=== PATIENT | male | born 2000 | race Caucasian/White ===

== ENCOUNTER 2021-09-03 18:49 | Emergency (ER) | payer OTHER ==
[~2021-09-03] VITALS: Ht 175.3 cm; Wt 104.3 kg
[2021-09-03] MEDS ORDERED: LEXAPRO 10 MG T10 M2 PO (19:39)
[2021-09-03] MEDS ORDERED: CLEOCIN HCL300 MG PO (20:37)
[2021-09-03] MEDS ORDERED: LEVAQUIN 500 M500 MG PO (20:37)
== END 2021-09-03 20:49 | disposition home or self-care (01) ==
LOC: M.ERS 18:49
DX: S71.112A Laceration without foreign body, left thigh, initial encounter (principal); Z79.899 Other long term (current) drug therapy; Z88.1 Allergy status to other antibiotic agents; W54.0XXA Bitten by dog, initial encounter; Y93.89 Activity, other specified; Y92.89 Other specified places as the place of occurrence of the external cause; Y99.8 Other external cause status